=== PATIENT | male | born 1995 | race Caucasian/White ===

== ENCOUNTER → 2018-05-09 | Outpatient (CLI) | payer OTHER ==
[~2018-05-09] MED LIST: IOPAMIDOL 76% 75 ML INFUS BTL 75 ML ONE
--- NOTE | 2018-05-09 17:34 | RADIOLOGY IMAGING REPORT ---
FACILITY: [facility] [place] PATIENT NAME: Thierno Diehl : 1995 MR: [id number] V: [id number] EXAM DATE: ORDERING PHYSICIAN: LEI GARLAND TECHNOLOGIST: [place] [facility] [place] Thierno Diehl : 1995 Visit/Account:[id number] Date of Sevice: 05/09/2018 EXAMINATION: CT head without IV contrast CT head with IV contrast HISTORY: Headaches. COMPARISON: None. TECHNIQUE: Contiguous axial images were obtained from the skull base to the vertex before and after IV contrast. Sagittal and coronal reformatted images are also submitted. CONTRAST: 75 mL of IV Isovue-[id number]. One of the following dose optimization techniques was utilized in the performance of this exam: Autom ated exposure control; adjustment of the mA and/or kV according to the patient's size; or use of an i terative reconstruction technique. Specific details can be referenced in the facility's radiology C T exam operational policy. FINDINGS: Brain volume: Normal. Ventricles: Normal. Acute ischemic changes: None. Hemorrhage: None. Masses/edema: None. Enhancement: Normal. Shaw-white: Negative. White matter: Normal. Vessels: Negative. Extra-axial: Negative. Calvarium/scalp: Negative. Skull base/visualized face: Negative. Visualized sinuses/orbits: Negative. IMPRESSION: Normal enhanced head CT. No intracranial mass lesion or hemorrhage. No CT evidence of acute infarct . Report Dictated By: Nenita Garrido MD at 05/09/2018 5:27 PM Report E-Signed By: Nenita Garrido MD at 05/09/2018 5:29 PM [id number]
== END ==
LOC: CT 15:28
PROVIDERS: ATTEND Pediatrics Adolescent Medicine
DX: R51 Headache (principal)
CPT/HCPCS: 70470; Q9967